=== PATIENT | male | born 1965 | race Caucasian/White ===

== ENCOUNTER 2017-06-19 14:51 | Outpatient (CLI) | payer BC ==
--- NOTE | 2017-06-19 16:34 | MRI ---
MRI OF LUMBAR SPINE WITHOUT CONTRAST 06/19/17 COMPARISON: None. HISTORY: Lumbar radiculopathy, right sided leg pain. TECHNIQUE: Multiplanar and multisequence MR imaging of cervical spine provided without contrast. FINDINGS: There is diffuse significant central canal stenosis on the basis of congenitally short pedicles invol ving the entirety of the lumbar spine. The sagittal STIR imaging demonstrates no focal area of osseou s marrow edema. Assuming five lumbar type vertebral bodies, the conus medullaris terminates at the L1-2 level. T12-L1: Intervertebral disc height and signal intensity is within normal limits. Mild central canal s tenosis. Mild bilateral facet hypertrophy. No neural foraminal stenosis. L1-2: There is disc space narrowing and mild disc bulge with mild central canal stenosis. There is bi lateral facet hypertrophy, left greater than right. No significant neural foraminal stenosis. L2-3: There is disc space narrowing and disc desiccation with mild disc bulge. The is bilateral liga mentum flavum and facet hypertrophy. There is mild central canal stenosis. There is a right foraminal annular tear with an associated right foraminal disc protrusion. This disc protrusion abuts the exit ing nerve root and mild right foraminal stenosis. L3-4: There is disc space narrowing and disc desiccation at L3-4 with mild disc bulge and a mild degr ee of central canal stenosis. There is moderate bilateral facet hypertrophy with fluid within bilater al facet joints. There is mild/moderate bilateral neural foraminal stenosis, left greater than right. L4-5: There is moderate bilateral facet hypertrophy and hypertrophy of the ligamentum flavum with flu id within bilateral facet joints. There is disc space narrowing, disc desiccation, and mild disc bulg e. This causes moderate central canal stenosis. There is moderate/severe right neural foraminal steno sis and mild left neural foraminal stenosis. L5-S1: Disc space narrowing and disc desiccation seen. There is a right paracentral disc extrusion wi th significant inferior migration of approximately 1.2 cm. This prominent right paracentral disc extr usion measures 1 cm in AP dimension and causes severe right lateral recess stenosis. There is bilateral facet hypertrophy with mild bilateral neural foraminal stenosis. Multiple small nodes are seen in the left para-aortic region. The imaged retroperitoneum is otherwise grossly unremarkable. IMPRESSION: There is prominent multilevel degenerative change throughout the lumbar spine, exacerbated by congeni tally short pedicles. The most significant finding is a large right paracentral disc extrusion with i nferior migration at L5-S1 causing severe right lateral recess stenosis. POS: KAROLINA
== END 2017-06-19 14:52 | disposition home or self-care (01) ==
LOC: TBSIIMAG 14:51
PROVIDERS: ATTEND Neurological Surgery
DX: M51.16 Intervertebral disc disorders with radiculopathy, lumbar region (principal); M47.26 Other spondylosis with radiculopathy, lumbar region; M48.061 Spinal stenosis, lumbar region without neurogenic claudication
CPT/HCPCS: 72148

== ENCOUNTER 2017-08-20 10:38 | Outpatient (CLI) | payer OTHER ==
[2017-08-20 12:44] LABS: Hemoglobin 14.6 g/dL (14.0-18.0); Mean Corpuscular HGB CONC 33.6 g/dL (32.0-36.0); Mean Corpuscular Volume 86.5 fl (80.0-94.0); Platelet Count 320 thou/uL (130-400); RBC Distribution Width 11.7 % (11.5-14.5); Red Blood Cell (RBC) Count 5.05 mill/uL (4.70-6.10); White Blood Cell (WBC) Count 4.1 thou/uL (4.8-10.8)
[2017-08-20 13:16] LABS: Anion Gap 12 mmol/L (10-20); BUN (Urea Nitrogen) 17 mg/dL (8.4-25.7); Calc. Creatinine Clearance 0 mL/min (70-130); Calcium 9.4 mg/dL (7.8-10.44); Carbon Dioxide 25 mmol/L (22-29); Chloride 106 mmol/L (98-107); Estimated GFR-MDRD Greater than 90; Glucose 98 mg/dL (70-105); Potassium 3.9 mmol/L (3.5-5.1); Sodium 139 mmol/L (136-145)
--- NOTE | 2017-08-21 06:27 | EKG ---
Test Reason : Blood Pressure : / mmHG Vent. Rate : 071 BPM Atrial Rate : 071 BPM P-R Int : 216 ms QRS Dur : 112 ms QT Int : 380 ms P-R-T Axes : 047 105 006 degrees QTc Int : 412 ms Poor data quality, interpretation may be adversely affected Sinus rhythm with 1st degree A-V block Rightward axis Incomplete right bundle branch block Borderline ECG Confirmed by MARIEL BORGES ([id number]) on 08/21/2017 6:26:52 AM Referred By: JAYME Confirmed By:MARIEL BORGES
== END 2017-08-20 10:39 | disposition home or self-care (01) ==
LOC: LABBT 10:38
PROVIDERS: ATTEND Neurological Surgery
DX: Z01.810 Encounter for preprocedural cardiovascular examination (principal); Z01.812 Encounter for preprocedural laboratory examination; M48.061 Spinal stenosis, lumbar region without neurogenic claudication
CPT/HCPCS: 80048; 85027; 93005; 93010

== ENCOUNTER 2017-08-27 07:17 | Day surgery (SDC) | payer OTHER ==
[2017-08-20 11:17] VITALS: BMI 37.5
[2017-08-27] MEDS ORDERED: CEFAZOLIN/Water 2 GM/20 ML SYRINGE ONE (08:49)
[2017-08-27] MEDS ORDERED: Fentanyl 100 MCG/2 ML VIAL ONE ×2 (09:37→11:55)
--- NOTE | 2017-08-27 11:20 | OP ---
DATE OF PROCEDURE: 08/27/2017 SURGEON: John Paz M.D. [employer] WORKER: Abdiaziz Short PROCEDURE: L4 through S1 decompressive laminectomy, right-sided discectomy. PROCEDURE IN DETAIL: The patient was brought into the operating room, intubated. He was rolled in t he prone position on gel-filled chest rolls. An incision was made exposing L4 through S1 and our lev el was confirmed by x-ray. We performed complete L5, inferior L4 and superior S1 laminectomies, comp letely decompressing L4-5 and L5-S1. We explored the intravertebral discs. At right L4-5 the intrav ertebral discs did not seem severely herniated. At the right L5-S1 we found the expected right S1 ex trusion and removed this. A complete decompression of all neural elements was achieved. The wound w as extensively irrigated, immaculate hemostasis was secured. Vancomycin powder was applied and the w ound was closed in anatomic layers.
[2017-08-27] MEDS ORDERED: ePHEDrine/0.9% NaCl/PF SYRINGE 50 mg/10 ml ONE (12:20)
[2017-08-27] MEDS ORDERED: Glycopyrrolate 0.2 MG/ML 5 ML SYRINGE ONE (12:20)
[2017-08-27] MEDS ORDERED: Ondansetron HCl/PF 4 MG/2 ML Vial ONE (12:20)
[2017-08-27] MEDS ORDERED: Ketorolac Tromethamine 30 MG/ML VIAL ONE (12:20)
[2017-08-27] MEDS ORDERED: Propofol 200 MG/20 ML VIAL ONE (12:20)
[2017-08-27] MEDS ORDERED: Dexamethasone 20 MG/5 ML VIAL ONE (12:20)
[2017-08-27] MEDS ORDERED: HYDROcodone/Acetaminophen 5/325 mg Tablet ONE ×2 (15:05→15:06)
== END 2017-08-27 15:35 | disposition home or self-care (01) ==
LOC: SDC 07:17
PROVIDERS: ATTEND Neurological Surgery
PROC: 01NB0ZZ Release Lumbar Nerve, Open Approach (ICD-10-PCS; principal; 2017-08-27)
PROC: 0ST20ZZ Resection of Lumbar Vertebral Disc, Open Approach (ICD-10-PCS; principal; 2017-08-27)
DX: M48.061 Spinal stenosis, lumbar region without neurogenic claudication (principal); I10 Essential (primary) hypertension; E78.5 Hyperlipidemia, unspecified; E66.9 Obesity, unspecified; Z68.37 Body mass index [BMI] 37.0-37.9, adult; Z79.899 Other long term (current) drug therapy; Z90.49 Acquired absence of other specified parts of digestive tract; Z98.890 Other specified postprocedural states
CPT/HCPCS: 76001; 96374; J1100; J1885; J2405; J2704; J3010; J3370

== ENCOUNTER 2021-05-09 08:28 | Outpatient (CLI) | payer BC | END 2021-05-09 08:29 | disposition home or self-care (01) | LOC: MRI 08:28 | PROVIDERS: ATTEND Orthopaedic Surgery | DX: M75.112 Incomplete rotator cuff tear or rupture of left shoulder, not specified as traumatic (principal); M19.012 Primary osteoarthritis, left shoulder ==

== ENCOUNTER 2021-05-23 15:54 | Outpatient (CLI) | payer BC ==
[2021-05-23 16:34] LABS: #Eosinphils 0.1 10x3/uL (0.0-0.5); #Monocytes 0.5 10x3/uL (0.0-1.1); #Neutrophils 3.2 10x3/uL (1.5-8.4); %Basophils 0.5 % (0.0-2.0); %Eosinophils 1.9 % (0.0-6.0); %Lymphocytes 33.4 % (18.0-47.0); %Monocytes 8.1 % (0.0-10.0); %Neutrophils 55.8 % (40.0-75.0); Hemoglobin 13.9 g/dL (13.5-17.5); Mean Corpuscular HGB CONC 32.6 g/dL (32.0-36.0); Mean Corpuscular Hemoglobin 27.9 pg (27.0-33.0); Mean Corpuscular Volume 85.6 fl (81.2-95.1); Mean Platelet Volume 9.2 fl (7.4-10.4); Platelet Count 366 10x3/uL (150-450); RBC Distribution Width 13.7 % (11.5-14.5); Red Blood Cell (RBC) Count 4.99 10x6/uL (4.32-5.72); White Blood Cell (WBC) Count 5.8 10x3/uL (3.5-10.5)
[2021-05-23 16:42] LABS: Anion Gap 14 mmol/L (10-20); BUN (Urea Nitrogen) 24 mg/dL (8.4-25.7); Calc. Creatinine Clearance 0 mL/min (70-130); Calcium 9.5 mg/dL (7.8-10.44); Carbon Dioxide 27 mmol/L (22-29); Chloride 105 mmol/L (98-107); Glucose 102 mg/dL (70-105); Sodium 142 mmol/L (136-145)
[2021-05-24 00:28] LABS: SARS-CoV-2 PCR by NAA Not Detected (NotDetected)
== END 2021-05-23 15:55 | disposition home or self-care (01) ==
LOC: LABBT 15:54
PROVIDERS: ATTEND Orthopaedic Surgery
DX: Z01.818 Encounter for other preprocedural examination (principal); M75.112 Incomplete rotator cuff tear or rupture of left shoulder, not specified as traumatic; Z20.822 Contact with and (suspected) exposure to COVID-19
CPT/HCPCS: 80048; 85025; 93005; 93010; U0003; U0005

== ENCOUNTER 2021-05-26 06:27 | Day surgery (SDC) | payer BC ==
[2021-05-24 13:23] VITALS: BMI 34.3
[2021-05-26] MEDS ORDERED: Fentanyl 100 MCG/2 ML VIAL ONE ×2 (07:54→08:50)
[2021-05-26] MEDS ORDERED: Midazolam HCl 2 mg/2 ml Vial ONE (07:54)
[2021-05-26] MEDS ORDERED: Promethazine HCl 25 MG/ML VIAL IM PRN (08:45)
[2021-05-26] MEDS ORDERED: Zolpidem Tartrate 5 MG TAB PO PRN (08:45)
[2021-05-26] MEDS ORDERED: Ondansetron PF 4 MG/2 ML Vial IVP PRN (08:45)
[2021-05-26] MEDS ORDERED: Ropivacaine 0.2% 550 ML 550 ML NERVE BLCK SCH (08:45)
[2021-05-26] MEDS ORDERED: Ropivacaine 0.5% HCl/PF (150 MG/30 ML VIAL) ONE (09:12)
[2021-05-26] MEDS ORDERED: Lidocaine 1% PF 5 ML VIAL ONE (09:12)
[2021-05-26] MEDS ORDERED: Ketorolac Tromethamine 30 MG/ML VIAL ONE (09:12)
[2021-05-26] MEDS ORDERED: Ropivacaine 2% HCl/PF (20 MG/10 ML VIAL) ONE (09:12)
[2021-05-26] MEDS ORDERED: Ondansetron PF 4 MG/2 ML Vial ONE (09:12)
[2021-05-26] MEDS ORDERED: Dexamethasone 20 MG/5 ML VIAL ONE (09:12)
[2021-05-26] MEDS ORDERED: Rocuronium Bromide 10 MG/ML (10ML VIAL) ONE (09:12)
[2021-05-26] MEDS ORDERED: Glycopyrrolate 0.2 MG/ML 5 ML SYRINGE ONE (09:12)
[2021-05-26] MEDS ORDERED: PROPOFOL 200 MG/20 ML VIAL ONE (09:12)
== END 2021-05-26 12:45 | disposition home or self-care (01) ==
LOC: SDC 06:27
PROVIDERS: ATTEND Orthopaedic Surgery
PROC: 0LQ24ZZ Repair Left Shoulder Tendon, Percutaneous Endoscopic Approach (ICD-10-PCS; principal; 2021-05-26)
PROC: 3E0T3BZ Introduction of Anesthetic Agent into Peripheral Nerves and Plexi, Percutaneous Approach (ICD-10-PCS; principal; 2021-05-26)
PROC: 0RNK4ZZ Release Left Shoulder Joint, Percutaneous Endoscopic Approach (ICD-10-PCS; principal; 2021-05-26)
DX: M75.112 Incomplete rotator cuff tear or rupture of left shoulder, not specified as traumatic (principal); M19.012 Primary osteoarthritis, left shoulder; I10 Essential (primary) hypertension; E78.5 Hyperlipidemia, unspecified; G89.29 Other chronic pain; M54.9 Dorsalgia, unspecified; E66.9 Obesity, unspecified; Z68.34 Body mass index [BMI] 34.0-34.9, adult; Z79.899 Other long term (current) drug therapy
CPT/HCPCS: A4306; J0690; J1100; J1885; J2250; J2405; J2704; J2795; J3010

== ENCOUNTER 2021-06-30 08:26 | Outpatient (CLI) | payer BC | END 2021-06-30 08:27 | disposition home or self-care (01) | LOC: TBSIIMAG 08:26 | PROVIDERS: ATTEND Neurological Surgery | DX: M54.50 Low back pain, unspecified (principal); M53.3 Sacrococcygeal disorders, not elsewhere classified; M47.816 Spondylosis without myelopathy or radiculopathy, lumbar region; M48.061 Spinal stenosis, lumbar region without neurogenic claudication; Z98.890 Other specified postprocedural states | CPT/HCPCS: 72110; 72148; 72220 ==

== ENCOUNTER 2023-07-17 09:28 | Outpatient (CLI) | payer BC | END 2023-07-17 09:29 | disposition home or self-care (01) | LOC: MRI 09:28 | PROVIDERS: ATTEND Nurse Practitioner Family | DX: M96.1 Postlaminectomy syndrome, not elsewhere classified (principal); M51.36 Other intervertebral disc degeneration, lumbar region; M51.37 Other intervertebral disc degeneration, lumbosacral region | CPT/HCPCS: 72148 ==

== ENCOUNTER 2023-08-10 16:26 | Outpatient (CLI) | payer BC ==
[2023-08-10 16:59] LABS: Hematocrit 39.6 % (38.8-50.0); Hemoglobin 13.4 g/dL (13.5-17.5); Mean Corpuscular HGB CONC 33.8 g/dL (32.0-36.0); Mean Corpuscular Hemoglobin 28.9 pg (27.0-33.0); Mean Corpuscular Volume 85.3 fl (81.2-95.1); Mean Platelet Volume 9.6 fl (7.4-10.4); Platelet Count 332 10x3/uL (150-450); RBC Distribution Width 14.2 % (11.5-14.5); Red Blood Cell (RBC) Count 4.64 10x6/uL (4.32-5.72); White Blood Cell (WBC) Count 5.1 10x3/uL (3.5-10.5)
[2023-08-10 17:10] LABS: Anion Gap 11 mmol/L (10-20); BUN (Urea Nitrogen) 22 mg/dL (8.4-25.7); Calc. Creatinine Clearance 0 mL/min (70-130); Calcium 9.4 mg/dL (7.8-10.44); Carbon Dioxide 31 mmol/L (22-29); Chloride 103 mmol/L (98-107); Estimated GFR 88; Glucose 95 mg/dL (70-105); Potassium 4.3 mmol/L (3.5-5.1); Sodium 141 mmol/L (136-145)
== END 2023-08-10 16:27 | disposition home or self-care (01) ==
LOC: LABBT 16:26
PROVIDERS: ATTEND Neurological Surgery
DX: Z01.812 Encounter for preprocedural laboratory examination (principal); M48.062 Spinal stenosis, lumbar region with neurogenic claudication
CPT/HCPCS: 80048; 85027; 93005; 93010

== ENCOUNTER 2023-08-13 10:46 | Observation (INO) | payer BC ==
[2023-08-13] MEDS ORDERED: PROPOFOL 20 ML ONE (10:53)
[2023-08-13] MEDS ORDERED: Midazolam HCl 2 mg/2 ml Vial ONE (10:53)
[2023-08-13] MEDS ORDERED: fentaNYL PF 100 MCG/2 ML SYRINGE ONE (10:53)
[2023-08-13] MEDS ORDERED: Ondansetron PF 4 MG/2 ML Vial ONE (10:54)
[2023-08-13] MEDS ORDERED: Dexamethasone 4 mg/ml Vial ONE (10:54)
[2023-08-13] MEDS ORDERED: Rocuronium Bromide 10 MG/ML (10ML VIAL) ONE (10:54)
[2023-08-13] MEDS ORDERED: Lidocaine 1% PF 5 ML VIAL ONE (10:54)
[2023-08-13] MEDS ORDERED: HYDROmorphone 0.5 MG/0.5 ML SYRINGE ONE ×4 (11:32→15:16)
[2023-08-13] MEDS ORDERED: SUGAMMADEX SODIUM 200 MG/2 ML VIAL ONE (11:32)
[2023-08-13] MEDS ORDERED: Sodium Chloride 0.9% 100 ML ONE (11:47)
[2023-08-13] MEDS ORDERED: CEFAZOLIN 2 GM VIAL ONE (11:47)
[2023-08-13] MEDS ORDERED: PHENYLEPHRINE-NS 100 MCG/ML 10 ML SYRINGE ONE (13:04)
[2023-08-13] MEDS ORDERED: ePHEDrine Sulfate 50 MG/10 ML VIAL ONE (13:17)
[2023-08-13] MEDS ORDERED: HYDROmorphone 2 MG/ML VIAL SLOW IVP PRN (13:45)
[2023-08-13] MEDS ORDERED: Ondansetron HCl/PF 4 MG/2 ML Vial IVP PRN (13:45)
[2023-08-13] MEDS ORDERED: Promethazine HCl 25 MG/ML VIAL IM PRN (13:45)
[2023-08-13] MEDS ORDERED: Morphine 2 MG/ML VIAL SLOW IVP PRN (14:20)
[2023-08-13] MEDS ORDERED: traMADol HCl 50 MG TAB PO PRN (14:20)
[2023-08-13] MEDS ORDERED: Acetaminophen 325 MG TAB PO PRN (14:20)
[2023-08-13] MEDS ORDERED: Ondansetron PF 4 MG/2 ML Vial IVP PRN (14:20)
[2023-08-13] MEDS ORDERED: Cyclobenzaprine 10 MG TAB PO PRN (14:20)
[2023-08-13] MEDS ORDERED: Mag-Al 1200 mg/1200 mg/30 ML UDCUP PO PRN (14:20)
[2023-08-13] MEDS ORDERED: HYDROcodone/Acetaminophen 10/325 mg Tablet PO PRN (14:20)
[2023-08-13] MEDS ORDERED: diphenhydrAMINE 50 MG/ML VIAL IVP PRN (14:20)
[2023-08-13] MEDS ORDERED: Promethazine 25 MG TAB PO PRN (14:20)
[2023-08-13] MEDS ORDERED: Milk Of Magnesia 30 ML UDCUP PO PRN (14:20)
[2023-08-13] MEDS ORDERED: Vancomycin 1 GM VIAL ONE (14:30)
[2023-08-13] MEDS ORDERED: fentaNYL 50 mcg/mL 1 mL Vial ONE (14:34)
[2023-08-13] MEDS ORDERED: Cyclobenzaprine 10 MG TAB ONE (14:56)
[2023-08-13 16:14] VITALS: BMI 33.7
[2023-08-13] MEDS: Sodium Chloride 0.9% 1,000 ML IV SCH (16:14)
[2023-08-13] MEDS: HYDROcodone/Acetaminophen 10/325 mg Tablet PO PRN (17:43)
[2023-08-13] MEDS: CEFAZOLIN 2 GM in Sodium Chloride 0.9% 100 ML IVPB SCH (20:13)
[2023-08-13] MEDS: Pregabalin 75 MG CAP PO SCH (20:14)
[2023-08-14] MEDS: Hydrochlorothiazide 25 MG TAB PO SCH (08:06)
[2023-08-14] MEDS: Lisinopril 20 MG TAB PO SCH (08:06)
[2023-08-14 11:49] VITALS: TEMP 98
[2023-08-14 14:08] VITALS: BP 138/75
[2023-08-16] MEDS ORDERED: FLU VACC QS2023-24(6MOS UP)/PF 60 MCG/0.5 ML SYRINGE IM ONE (09:00)
== END 2023-08-14 13:49 | disposition home or self-care (01) ==
LOC: SDC 10:46 → T4-B 14:20
PROVIDERS: ADMIT Neurological Surgery; ATTEND Neurological Surgery
PROC: 0SG007J Fusion of Lumbar Vertebral Joint with Autologous Tissue Substitute, Posterior Approach, Anterior Column, Open Approach (ICD-10-PCS; principal; 2023-08-14)
DX: M48.062 Spinal stenosis, lumbar region with neurogenic claudication (principal); M51.36 Other intervertebral disc degeneration, lumbar region; E78.5 Hyperlipidemia, unspecified; I10 Essential (primary) hypertension; E66.9 Obesity, unspecified; Z90.49 Acquired absence of other specified parts of digestive tract; Z79.899 Other long term (current) drug therapy; Z68.33 Body mass index [BMI] 33.0-33.9, adult
CPT/HCPCS: C1713; C1889; J1100; J1170; J2250; J2405; J2704; J3010; J3370; J3490

== ENCOUNTER 2023-08-30 08:40 | Outpatient (CLI) | payer BC | END 2023-08-30 08:41 | disposition home or self-care (01) | LOC: BICRAD 08:40 | PROVIDERS: ATTEND Neurological Surgery | DX: M48.062 Spinal stenosis, lumbar region with neurogenic claudication (principal); Z98.890 Other specified postprocedural states | CPT/HCPCS: 72100 ==

== ENCOUNTER 2025-03-23 07:31 | Outpatient (CLI) | payer BC | END 2025-03-23 07:32 | disposition home or self-care (01) | LOC: SCSMRI 07:31 | PROVIDERS: ATTEND Family Medicine | DX: M76.892 Other specified enthesopathies of left lower limb, excluding foot (principal); M67.852 Other specified disorders of synovium, left hip ==

== ENCOUNTER 2025-06-08 07:46 | Outpatient (CLI) | payer BC ==
[2025-06-08 09:08] LABS: #Basophils Less than 0.03 10x3/uL (0.0-0.2); #Eosinophils 0.12 10x3/uL (0.0-0.7); #Monocytes 0.35 10x3/uL (0.11-0.59); #Neutrophils 2.76 10x3/uL (1.40-6.50); %Basophils 0.2 % (0.0-1.0); %Eosinophils 2.6 % (0.0-10.0); %Lymphocytes 30.1 % (21.0-51.0); %Monocytes 7.5 % (0.0-10.0); %Neutrophils 59.4 % (42.0-75.0); Hematocrit 44.1 % (42.0-52.0); Hemoglobin 14.1 g/dL (14.0-18.0); Mean Corpuscular Hemoglobin 27.6 pg (27.0-31.0); Mean Corpuscular Volume 86.3 fL (78.0-98.0); Platelet Count 356 10x3/uL (130-400); Red Blood Cell (RBC) Count 5.11 mill/uL (4.70-6.10); White Blood Cell (WBC) Count 4.65 10x3/uL (4.8-10.8)
[2025-06-08 09:17] LABS: INR-International Normal Ratio 1.0; Prothrombin Time 13.7 sec (12.0-14.7)
[2025-06-08 09:20] LABS: ALT (SGPT) 26 U/L (Less than 45); AST (SGOT) 23 U/L (11-34); Albumin 4.5 g/dL (3.1-4.5); Alkaline Phosphatase 57 U/L (40-110); Anion Gap 13 mmol/L (10-20); BUN (Urea Nitrogen) 18 mg/dL (8.4-25.7); Bilirubin, Total 0.5 mg/dL (0.3-1.2); Calc. Creatinine Clearance 0 mL/min (70-130); Calcium 9.5 mg/dL (7.8-10.44); Carbon Dioxide 25 mmol/L (22-29); Chloride 102 mmol/L (98-107); Globulin 2.7 g/dL (2.4-3.5); Glucose 104 mg/dL (70-105); Potassium 4.0 mmol/L (3.5-5.1); Sodium 136 mmol/L (136-145)
== END 2025-06-08 07:47 | disposition home or self-care (01) ==
LOC: LABBT 07:46
PROVIDERS: ATTEND Student in an Organized Health Care Education/Training Program
DX: Z01.818 Encounter for other preprocedural examination (principal); M16.12 Unilateral primary osteoarthritis, left hip; M67.852 Other specified disorders of synovium, left hip
CPT/HCPCS: 80053; 83036; 85025; 85610; 87081

== ENCOUNTER 2025-06-15 05:47 | Observation (INO) | payer BC ==
[2025-06-08 08:16] VITALS: BMI 33.1
[2025-06-15] MEDS ORDERED: Tranexamic Acid 1,000 MG/10 ML VIAL ONE (06:20)
[2025-06-15] MEDS ORDERED: VANCOMYCIN 2 GRAM/400 ML BAG ONE (06:21)
[2025-06-15] MEDS ORDERED: Gabapentin 300 MG CAP ONE (06:25)
[2025-06-15] MEDS ORDERED: Acetaminophen 500 MG TAB ONE ×2 (06:26→12:25)
[2025-06-15] MEDS ORDERED: Lidocaine 1% PF 5 ML VIAL ONE (06:35)
[2025-06-15] MEDS ORDERED: fentaNYL PF 100 MCG/2 ML SYRINGE ONE ×3 (06:35→13:20)
[2025-06-15] MEDS ORDERED: Lidocaine 1% (PF) 30 ML VIAL ONE (06:54)
[2025-06-15] MEDS ORDERED: Ropivacaine 0.5% HCl/PF (150 MG/30 ML VIAL) ONE (06:54)
[2025-06-15] MEDS ORDERED: Rocuronium Bromide 10 MG/ML (10ML VIAL) ONE (07:20)
[2025-06-15] MEDS ORDERED: Ondansetron PF 4 MG/2 ML Vial ONE (07:49)
[2025-06-15] MEDS ORDERED: PHENYLEPHRINE-NS 100 MCG/ML 10 ML SYRINGE ONE (09:41)
[2025-06-15] MEDS ORDERED: SUGAMMADEX SODIUM 200 MG/2 ML VIAL ONE ×2 (11:21→11:35)
[2025-06-15] MEDS ORDERED: diphenhydrAMINE 25 MG CAP PO PRN (11:40)
[2025-06-15] MEDS ORDERED: Ondansetron PF 4 MG/2 ML Vial IVP PRN (11:40)
[2025-06-15] MEDS: Acetaminophen 500 MG TAB PO SCH (12:29)
[2025-06-15] MEDS ORDERED: HYDROmorphone 0.5 MG/0.5 ML SYRINGE ONE ×4 (12:32→13:19)
[2025-06-15] MEDS: Multivitamin W/ Minerals 1 TAB PO SCH (14:18)
[2025-06-15] MEDS: Methocarbamol 500 MG TAB PO PRN (14:38)
[2025-06-15] MEDS: oxyCODONE 5 MG TAB PO PRN (18:22)
[2025-06-15] MEDS: Ferrous Gluconate 324 MG TAB PO SCH (20:35)
[2025-06-15] MEDS: Senokot S 8.6-50 MG TAB PO SCH (20:35)
[2025-06-15] MEDS: Gabapentin 300 MG CAP PO SCH (20:35)
[2025-06-16 05:08] LABS: Hematocrit 26.1 % (42.0-52.0); Hemoglobin 8.5 g/dL (14.0-18.0); Mean Corpuscular Hemoglobin 28.4 pg (27.0-31.0); Mean Corpuscular Volume 87.3 fL (78.0-98.0); Platelet Count 274 10x3/uL (130-400); Red Blood Cell (RBC) Count 2.99 mill/uL (4.70-6.10); White Blood Cell (WBC) Count 7.91 10x3/uL (4.8-10.8)
[2025-06-16 05:37] LABS: Anion Gap 13 mmol/L (10-20); BUN (Urea Nitrogen) 28 mg/dL (8.4-25.7); Calc. Creatinine Clearance 122 mL/min (70-130); Carbon Dioxide 25 mmol/L (22-29); Chloride 105 mmol/L (98-107); Glucose 138 mg/dL (70-105); Potassium 4.1 mmol/L (3.5-5.1); Sodium 139 mmol/L (136-145)
[2025-06-16 05:38] LABS: Calcium 7.8 mg/dL (7.8-10.44)
[2025-06-16] MEDS: Multivitamin W/ Minerals 1 TAB PO SCH (09:14)
[2025-06-16] MEDS: Cholecalciferol 1,000 UNITS (25 MCG) TAB PO SCH (09:14)
[2025-06-16] MEDS: Aspirin 81 mg Enteric Coated Tablet PO SCH (09:15)
[2025-06-16 12:15] VITALS: BP 133/65; TEMP 98.5
== END 2025-06-16 13:15 | disposition home or self-care (01) ==
LOC: SDC 05:47 → SURG A 14:12
PROVIDERS: ADMIT Student in an Organized Health Care Education/Training Program; ATTEND Student in an Organized Health Care Education/Training Program
PROC: 0SRB0JZ Replacement of Left Hip Joint with Synthetic Substitute, Open Approach (ICD-10-PCS; principal; 2025-06-15)
PROC: 3E0T3BZ Introduction of Anesthetic Agent into Peripheral Nerves and Plexi, Percutaneous Approach (ICD-10-PCS; 2025-06-15)
DX: M16.12 Unilateral primary osteoarthritis, left hip (principal); M67.852 Other specified disorders of synovium, left hip; E78.5 Hyperlipidemia, unspecified; I10 Essential (primary) hypertension; Z79.899 Other long term (current) drug therapy
CPT/HCPCS: 36415; 71045; 72170; 80048; 82306; 85027; C1776; J0169; J1100; J1171; J2003; J2250; J2405; J2550; J2795; J3373; J3375; J7030